=== PATIENT | female | born 1985 | race Caucasian/White ===

== ENCOUNTER 2016-10-04 06:29 | Outpatient (CLI) | payer BC ==
[~2016-10-04] VITALS: Ht 160 cm; Wt 77.2 kg
[2016-10-04 07:35] VITALS: BP 106/69
[2016-10-04] MEDS ORDERED: ONDA4TAB7 PO (09:36)
[2016-10-04] MEDS ORDERED: CEFU500T50 PO (09:39)
== END 2016-10-04 09:45 | disposition home or self-care (01) ==
LOC: LDOP 06:29
PROVIDERS: ATTEND Student in an Organized Health Care Education/Training Program
DX: O26.893 Other specified pregnancy related conditions, third trimester (principal); O26.833 Pregnancy related renal disease, third trimester; O21.9 Vomiting of pregnancy, unspecified; R10.9 Unspecified abdominal pain; R19.7 Diarrhea, unspecified; N13.30 Unspecified hydronephrosis; Z3A.36 36 weeks gestation of pregnancy
CPT/HCPCS: 59025; 76770; 81001; 87086; 99211; G0463

== ENCOUNTER 2016-10-07 07:19 | Inpatient (IN) | payer BC ==
[~2016-10-07] VITALS: Ht 160 cm; Wt 77.2 kg
[~2016-10-07 07:19] MED LIST: CEFU500T50 PO; ONDA4TAB7 PO
[2016-10-07 07:35] VITALS: BP 132/88
[2016-10-07] MEDS ORDERED: D5%-LACTATED RINGERS 1,000 ML IV SCH (07:55)
[2016-10-07] MEDS ORDERED: OXYTOCIN 30U/ 0.9% NaCL 500ML 500 ML IV ONE (07:55)
[2016-10-07] MEDS ORDERED: ONDANSETRON 2MG/ML, 2ML IVPush PRN (08:00)
[2016-10-07] MEDS ORDERED: SODIUM CITRATE/CITRIC ACID 30 ML UDC PO PRN (08:00)
[2016-10-07] MEDS ORDERED: FENTANYL PF 100 MCG/2ML IV PRN (08:00)
[2016-10-07] MEDS ORDERED: METOCLOPRAMIDE 5 MG/ML, 2ML IVPush PRN (08:00)
[2016-10-07] MEDS ORDERED: TERBUTALINE 1 MG/ML, 1ML IVPush PRN (08:00)
[2016-10-07] MEDS: LACTATED RINGERS 1,000 ML IV SCH ×2 (08:08→15:28)
[2016-10-07] MEDS ORDERED: LIDOCAINE 1%, 20ML ONE (08:27)
[2016-10-07] MEDS ORDERED: NEWBORN KIT ONE (08:28)
[2016-10-07] MEDS ORDERED: OXYTOCIN 30U/ 0.9% NaCL 500ML 500 ML ONE ×2 (08:28→16:48)
[2016-10-07] MEDS ORDERED: MISOPROSTOL 200 MCG TABLET ONE (08:28)
[2016-10-07 08:35] LABS: BLOOD UREA NITROGEN 10 mg/dL (7-18)
[2016-10-07 08:38] LABS: ASPARTATE AMINO TRANSFERASE 15 U/L (15-37)
[2016-10-07] MEDS ORDERED: CARBOPROST TROMETHAMINE 250 MCG/ML, 1ML IM ONE ×2 (09:00→18:00)
[2016-10-07] MEDS ORDERED: METHYLERGONOVINE 0.2 MG/ML IM ONE ×2 (09:00→18:00)
[2016-10-07] MEDS ORDERED: FENTANYL PF 100 MCG/2ML ONE ×3 (11:31→16:41)
[2016-10-07] MEDS: FENTANYL PF 100 MCG/2ML IVPush PRN ×3 (11:33→16:43)
[2016-10-07] MEDS: OXYTOCIN 30U/ 0.9% NaCL 500ML 500 ML IV SCH (16:28)
[2016-10-07] MEDS ORDERED: RHOGAM FROM BLOOD BANK 1 NOTE EA IM/IV ONE (18:00)
[2016-10-07] MEDS ORDERED: MEASLES,MUMPS&RUBELLA VACC/PF 0.5 ML SQ PRN (18:00)
[2016-10-07] MEDS ORDERED: CALCIUM CARBONATE 500 MG TAB.CHEW PO PRN (18:00)
[2016-10-07] MEDS ORDERED: METHYLERGONOVINE 0.2 MG/ML IM PRN (18:00)
[2016-10-07] MEDS ORDERED: MISOPROSTOL 200 MCG TABLET PR PRN (18:00)
[2016-10-07] MEDS ORDERED: BISACODYL 10 MG SUPP PR PRN (18:00)
[2016-10-07] MEDS ORDERED: DIPH,PERTUSS(ACELL),TET VAC/PF NC IM-VACC PRN (18:00)
[2016-10-07] MEDS ORDERED: MISOPROSTOL 200 MCG TABLET PR ONE (18:00)
[2016-10-07] MEDS ORDERED: METOCLOPRAMIDE 5 MG/ML, 2ML IV PRN (18:00)
[2016-10-07] MEDS ORDERED: MAGNESIUM HYDROXIDE 8%, 30ML UDC PO PRN (18:00)
[2016-10-07] MEDS ORDERED: ACETAMINOPHEN 325 MG TABLET PO PRN ×2 (18:00)
[2016-10-07] MEDS ORDERED: GLYCERIN ADULT SUPP PR PRN (18:00)
[2016-10-07] MEDS ORDERED: CARBOPROST TROMETHAMINE 250 MCG/ML, 1ML IM PRN (18:00)
[2016-10-07] MEDS ORDERED: HYDROcodone/APAP 5/325 TABLET PO PRN (18:00)
[2016-10-07] MEDS ORDERED: HYDROcodone/APAP 10/325 MG TABLET PO PRN (18:00)
[2016-10-07] MEDS ORDERED: ONDANSETRON 2MG/ML, 2ML IV PRN (18:00)
[2016-10-07] MEDS ORDERED: DOCUSATE 100 MG CAPSULE PO PRN (18:00)
[2016-10-07 18:12] LABS: PROTIME 10.3 Seconds (9.6-11.5)
[2016-10-07] MEDS ORDERED: IBUPROFEN 600 MG TABLET ONE (18:40)
[2016-10-07] MEDS: IBUPROFEN 600 MG TABLET PO PRN (18:42)
[2016-10-07 20:10] VITALS: BP 132/72
[2016-10-07 23:45] VITALS: BP 110/71
[2016-10-08] MEDS: OXYTOCIN 30U/ 0.9% NaCL 500ML 500 ML IV SCH ×2 (03:36→13:36)
[2016-10-08 03:58] VITALS: BP 111/66
[2016-10-08] MEDS: IBUPROFEN 600 MG TABLET PO PRN ×2 (05:32→14:32)
[2016-10-08 07:07] VITALS: BP 114/55
[2016-10-08 12:13] VITALS: BP 118/77
[2016-10-08] MEDS: PRENATAL VIT/IRON/FA 1 EACH TABLET PO SCH (14:32)
[2016-10-08 19:45] VITALS: BP 117/67
[2016-10-09] MEDS: IBUPROFEN 600 MG TABLET PO PRN (03:30)
[2016-10-09 06:45] VITALS: BP 120/79
[2016-10-09] MEDS ORDERED: HYDR-3240 PO (08:12)
[2016-10-09] MEDS ORDERED: IBUP-1222 PO (08:12)
[2016-10-09] MEDS ORDERED: DOCU-30 PO (08:13)
[2016-10-09] MEDS ORDERED: FERR324T5 PO (08:14)
[2016-10-09] MEDS: PRENATAL VIT/IRON/FA 1 EACH TABLET PO SCH (08:29)
== END 2016-10-09 11:54 | disposition home or self-care (01) | DRG 774 ==
LOC: LDOP 07:19 → LDIP 08:07 → 2NW 19:45
PROVIDERS: ADMIT Student in an Organized Health Care Education/Training Program; ATTEND Student in an Organized Health Care Education/Training Program
PROC: 10E0XZZ Delivery of Products of Conception, External Approach (ICD-10-PCS; principal; 2016-10-07)
PROC: 0KQM0ZZ Repair Perineum Muscle, Open Approach (ICD-10-PCS; 2016-10-07)
PROC: 0UQMXZZ Repair Vulva, External Approach (ICD-10-PCS; 2016-10-07)
DX: O99.284 Endocrine, nutritional and metabolic diseases complicating childbirth (principal); O72.1 Other immediate postpartum hemorrhage; Z37.0 Single live birth; E78.00 Pure hypercholesterolemia, unspecified; O76 Abnormality in fetal heart rate and rhythm complicating labor and delivery; O70.1 Second degree perineal laceration during delivery; O71.82 Other specified trauma to perineum and vulva; Z88.1 Allergy status to other antibiotic agents; Z3A.37 37 weeks gestation of pregnancy; Z88.2 Allergy status to sulfonamides; Z23 Encounter for immunization
CPT/HCPCS: 36415; 80053; 84550; 85014; 85025; 85049; 85379; 85384; 85610; 85730; 86850; 86900; J3010; J2210; J2590; J7120

== ENCOUNTER 2017-01-04 12:32 | Emergency (ER) | payer BC ==
[~2017-01-04] VITALS: Ht 160 cm; Wt 64.9 kg
[~2017-01-04 12:32] MED LIST changes: +DOCU-131 PO; +FERR324T5 PO; +HYDR-3240 PO; +IBUP-1222 PO
[2017-01-04 12:34] VITALS: BP 137/76
== END 2017-01-04 13:42 | disposition home or self-care (01) ==
LOC: ED 13:41
DX: L50.0 Allergic urticaria (principal); Z88.0 Allergy status to penicillin
CPT/HCPCS: 99283

== ENCOUNTER 2018-12-05 08:09 | Outpatient (CLI) | payer OTHER | END 2018-12-05 23:59 | disposition home or self-care (01) | LOC: STAR 08:09 | PROVIDERS: ATTEND Urology | DX: Z01.818 Encounter for other preprocedural examination (principal); N20.9 Urinary calculus, unspecified | CPT/HCPCS: 81003; 87086 ==

== ENCOUNTER 2018-12-15 11:01 | Outpatient (CLI) | payer OTHER | END 2018-12-15 23:59 | disposition home or self-care (01) | LOC: RAD 11:01 | PROVIDERS: ATTEND Urology | DX: N20.0 Calculus of kidney (principal) | CPT/HCPCS: 74018 ==

== ENCOUNTER 2018-12-16 05:15 | Day surgery (SDC) | payer OTHER ==
[~2018-12-16] VITALS: Ht 160 cm; Wt 72.2 kg
[2018-12-16 06:20] VITALS: BP 134/85
== END 2018-12-16 14:02 | disposition home or self-care (01) ==
LOC: OUT 05:15
PROVIDERS: ATTEND Urology
DX: N20.0 Calculus of kidney (principal); E78.5 Hyperlipidemia, unspecified; Z88.2 Allergy status to sulfonamides; Z88.1 Allergy status to other antibiotic agents; Z88.8 Allergy status to other drugs, medicaments and biological substances; Z79.899 Other long term (current) drug therapy
CPT/HCPCS: 52356; 74420; 81025; 82360; 88300; C1758; C1769; C2617; J0690; J1100; J1885; J2405; J2704; J3010; J7120; Q9967